=== PATIENT | male | born 1985 | race Caucasian/White ===

== ENCOUNTER 2017-01-20 00:48 | Emergency (ER) | payer BC ==
[2017-01-20] MEDS ORDERED: Ondansetron HCl/PF 4 MG/2 ML Vial ONE (01:08)
[2017-01-20 01:16] LABS: #Basophils 0.2 thou/uL (0.0-0.2); #Eosinphils 0.1 thou/uL (0.0-0.7); #Lymphocytes 3.7 thou/uL (1.20-3.40); #Monocytes 0.8 thou/uL (0.11-0.59); #Neutrophils 5.3 thou/uL (1.40-6.50); %Basophils 1.6 % (0.0-1.0); %Eosinophils 1.4 % (0.0-10.0); %Lymphocytes 36.6 % (21.0-51.0); %Monocytes 8.2 % (0.0-10.0); Hematocrit 47.1 % (42.0-52.0); Mean Platelet Volume 5.4 fL (7.4-10.4); Red Blood Cell (RBC) Count 5.63 mill/uL (4.70-6.10); White Blood Cell (WBC) Count 10.2 thou/uL (4.8-10.8)
[2017-01-20 01:31] LABS: Bacteria/HPF None Seen HPF (None Seen); Bilirubin Negative (Negative); Blood, Urine Large (Negative); Glucose, Urine (Dipstick) Negative (Negative); Hyaline Casts/LPF NONE SEEN LPF (0-3 Hyaline); Ketone, Urine Negative (Negative); Nitrite Negative (Negative); Protein, Urine (Dipstick) Trace mg/dL (Neg-Trace); RBC/HPF GREATER THAN 50-TNTC HPF (0-3); Squamous Epithelial 0-3 HPF (0-3); Urobilinogen 0.2 mg/dL (0.2-1.0); WBC/HPF 0-3 HPF (0-3)
[2017-01-20 01:31] LABS: Anion Gap 18 mmol/L (10-20); BUN (Urea Nitrogen) 18 mg/dL (8.9-20.6); Calc. Creatinine Clearance 0 mL/min (70-130); Calcium 9.9 mg/dL (7.8-10.44); Carbon Dioxide 22 mmol/L (22-29); Chloride 106 mmol/L (98-107); Estimated GFR-MDRD 78
--- NOTE | 2017-01-20 10:12 | CT ---
PRELIMINARY REPORT/[facility]/EMERGENCY AFTER HOURS PROCEDURE: EXAM: CT Abdomen and Pelvis Without Intravenous Contrast EXAM DATE/TIME: Exam ordered 01/20/2017 1:21 AM CLINICAL HISTORY: 31 years old, male; Pain; Abdominal pain; Flank; Left; Patient HX: Patient reports sudden onset of l eft flank at midnight, just 1 hour ago. He has never had this before. Denies any abdominal pain or p ain anywhere else. Reports he is now having trouble urinating, no other urine symptoms. Reports naus ea, denies vomiting, diarrhea, or fever. He denies any other symptoms, complaints, or problems. TECHNIQUE: Axial computed tomography images of the abdomen and pelvis without intravenous contrast. Coronal reformatted images were created and reviewed. COMPARISON: No relevant prior studies available. FINDINGS: Lower thorax: No acute findings. ABDOMEN: Liver: Unremarkable. Gallbladder and bile ducts: Unremarkable. No calcified stones. No ductal dilation. Pancreas: Unremarkable. No ductal dilation. Spleen: Unremarkable. No splenomegaly. Adrenals: Unremarkable. No mass. Kidneys and ureters: 1-2 mm obstructing stone at the left UVJ causing mild obstructive uropathy. Non obstructive nephrolithiasis left kidney. Stomach and bowel: Unremarkable. No obstruction. No mucosal thickening. Appendix: Normal appendix. PELVIS: Bladder: Unremarkable. No stones. Reproductive: Unremarkable as visualized. ABDOMEN and PELVIS: Intraperitoneal space: Unremarkable. No free air. No significant fluid collection. Bones/joints: No acute fracture. No dislocation. Soft tissues: Unremarkable. Vasculature: Unremarkable. No abdominal aortic aneurysm. Lymph nodes: Unremarkable. No enlarged lymph nodes. IMPRESSION: 1-2 mm obstructing stone at the left UVJ causing mild obstructive uropathy. Thank you for allowing us to participate in the care of your patient. Dictated and Authenticated by: Kalpesh Eason MD 01/20/2017 1:50 AM Central Time ([place] \T\ [place]) FINAL REPORT EMERGENCY AFTER HOURS STUDY CT ABDOMEN NONCONTRAST CT PELVIS NONCONTRAST: (urolithiasis protocol) DATE: 01/20/17 HISTORY: 31-year-old male with sudden onset left flank pain, with dysuria, and nausea. TECHNIQUE: IV injection of iodinated contrast media: none Oral contrast media: none FINDINGS: Other than for urolithiasis, the lack of IV and oral contrast limits the evaluation. There is a tiny, punctate, 1 mm calculus in the distal left ureter, located a distance of approximat dodie 10 mm proximal to the bladder, causing mild left hydroureteronephrosis (axial image 85 of 97, se sung 3, and coronal image 79 of 129, series 602. The large, 4 mm, calcification slightly posterior t o this is a phlebolith and should not be mistaken for a distal ureteral calculus). There is a tiny, currently nonobstructing 2 mm calculus at a lower pole ang in the left kidney. There is no calculu s or hydronephrosis on the right side. There is a deep pectus excavatum. Lung bases are grossly jamison r. Within the limitations of noncontrast scan, no gross pathology is identified involving the right kidney, abdominal aorta, adrenals, pancreas, liver, spleen, or appendix. No acute colonic diverticul itis. No small bowel dilation. No free fluid or free air within the abdominal cavity or pelvic cavit y. No pleural effusion. No major disagreement with preliminary report by [facility]. IMPRESSION: 1. Positive for mild, low grade left obstructive uropathy: a 1 mm calculus at distal left ureter ca using mild left hydroureteronephrosis. 2. Mild left nephrolithiasis consisting of a solitary left renal lower pole small calculus. 3. Somewhat severe pectus excavatum asymmetrically worse on the right side than left. BILL Neely POS: MARIAH
== END 2017-01-20 02:13 | disposition home or self-care (01) ==
LOC: SCSER 00:48
DX: N13.2 Hydronephrosis with renal and ureteral calculous obstruction (principal); I10 Essential (primary) hypertension
CPT/HCPCS: 74176; 80048; 81003; 81015; 85025; 96361; 96374; 96375; J2270; J2405